=== PATIENT | female | born 1950 | race Caucasian/White ===

== ENCOUNTER → 2016-08-29 | Outpatient (CLI) | payer OTHER ==
--- NOTE | 2016-08-29 14:26 | US ---
Right Breast Ultrasound - August 29, 2016 Indication: Increasing in size palpable lump inner right breast. History of right breast cyst. Technique: The inner and outer right breast was scanned with a high-resolution linear transducer by jaz angulo lifeguard and myself. Correlation was made with mammograms and targeted physical exam. Comparison: Right breast sonogram dated December 14, 2014, diagnostic mammogram earlier today, and scree asha and diagnostic mammograms dating back to November 2011. Findings: The palpable lump corresponds to a well-circumscribed benign anechoic cyst with increased t hrough transmission at 3 o'clock position 2 cm from the nipple. The cyst has increased in size since November 2014, and now measures 1.8 x 1.7 x 1.2 cm (previously 1.6 x 1.6 x 0.8 cm). Two new simple cysts have developed in the upper-outer right breast 10 and 11 o'clock position. The l argest cyst at the 11 o'clock position 5 cm from the nipple measures 2.4 x 1.7 x 0.8 cm. No solid mass or lesion suspicious for malignancy. Impression: Benign cysts scattered throughout the inner and outer right breast. The palpable lump in the inner right breast corresponds to a cyst at the 3 o'clock position, which has minimally increase d in volume since November 2014. BI-RADS 2: Benign finding. Recommendation: If desired, the cyst in the inner right breast could be aspirated with ultrasound sakshi dance to alleviate symptoms. Routine bilateral mammographic screening due in November 2016. The negative results and recommendations were discussed with the patient at time of study completion.
--- NOTE | 2016-08-29 18:15 | MA ---
Right Digital Diagnostic Mammogram with Tomosynthesis, August 29, 2016 Indication: Palpable lump inner right breast. Known breast cyst. Technique: Conventional 2-D CC and true lateral views. Digital breast tomosynthesis was performed in the MLO projection with reconstruction at 1.0 mm slice thickness and composite MLO views reconstructe d. This examination is processed by the [employer] computer aided detection system. Comparison: Screening mammograms dated November 2015, November 2014, November 2013, and November 2011. Breast density: Type C. Findings: CAD was reviewed. The round partially obscured mass in the inner right breast, proven to be a benign cyst in November 2014 has increased in size. Two new partially obscured nodular asymmetries benitez ve developed in the upper-outer right breast 10 to 11 o'clock position. Impression: 1. Palpable lump appears to correspond with increasing is size cysts inner right breast. 2. Two new partially obscured masses versus cyst in the upper-outer right breast. Recommendation: Proceed with right breast today to optimally characterize palpable lump and new findi ngs in the upper-outer right breast. BI-RADS 0: Needs additional imaging evaluation. [facility] will send a result letter to the patient.
== END ==
LOC: FIMAGING 12:07
PROVIDERS: ATTEND Obstetrics & Gynecology
DX: Z12.39 Encounter for other screening for malignant neoplasm of breast (principal); N63 Unspecified lump in breast
CPT/HCPCS: G0206; G0279

== ENCOUNTER → 2016-12-17 | Outpatient (CLI) | payer OTHER | LOC: FIMAGING 09:46 | DX: Z12.31 Encounter for screening mammogram for malignant neoplasm of breast (principal) | CPT/HCPCS: G0202 ==

== ENCOUNTER → 2017-01-29 | Outpatient (CLI) | payer OTHER | LOC: BRMIMAGING 09:08 | PROVIDERS: ATTEND Physician Assistant Medical | DX: Z13.820 Encounter for screening for osteoporosis (principal); M85.80 Other specified disorders of bone density and structure, unspecified site ==

== ENCOUNTER → 2017-12-18 | Outpatient (CLI) | payer OTHER | LOC: FIMAGING 09:43 | PROVIDERS: ATTEND Obstetrics & Gynecology | DX: Z12.31 Encounter for screening mammogram for malignant neoplasm of breast (principal) ==

== ENCOUNTER → 2017-12-20 | Outpatient (CLI) | payer OTHER | LOC: FIMAGING 08:49 | DX: R92.8 Other abnormal and inconclusive findings on diagnostic imaging of breast (principal) ==

== ENCOUNTER → 2018-06-24 | Outpatient (CLI) | payer OTHER | LOC: FIMAGING 08:37 | DX: R92.2 Inconclusive mammogram (principal) ==

== ENCOUNTER → 2018-12-19 | Outpatient (CLI) | payer OTHER | LOC: FIMAGING 10:50 | PROVIDERS: ATTEND Family Medicine | DX: Z12.31 Encounter for screening mammogram for malignant neoplasm of breast (principal) ==